=== PATIENT | female | born 2005 | race Caucasian/White ===

== ENCOUNTER 2024-10-05 13:54 | Emergency (ER) | payer SELFPAY ==
[~2024-10-05] VITALS: Ht 160 cm; Wt 57.0 kg
[2024-10-05 14:03] VITALS: BP 102/60; PULSE 60; RESP 16; TEMP 36.3; O2SAT 99
== END 2024-10-05 19:35 | disposition left against medical advice (07) ==
LOC: ER 13:54
DX: R10.9 Unspecified abdominal pain (principal); Z53.21 Procedure and treatment not carried out due to patient leaving prior to being seen by health care provider